=== PATIENT | female | born 1935 | race Caucasian/White ===

== ENCOUNTER → 2024-02-12 19:04 | Outpatient (ROUT) | payer SELFPAY ==
[2024-02-12 19:13] LABS: Appearance Urine UA CLEAR; Bilirubin Urine UA NEGATIVE (NEGATIVE); Color Urine UA YELLOW; Glucose Urine UA NEGATIVE (Negative); Ketones Urine UA NEGATIVE (NEGATIVE); Leukocyte Esterase Urine UA NEGATIVE (NEGATIVE); Nitrite Urine UA NEGATIVE (Negative); Occult Blood Urine UA NEGATIVE (Negative); Protein Urine UA NEGATIVE (Negative); Specific Gravity Urine UA <=1.005 (1.000-1.035); Urobilinogen Urine UA 0.2 E.U./dL (0.2)
[2024-02-12 19:35] LABS: Bacteria Urine None Seen; RBC Urine None Seen (0-5/HPF); Urine Volume 10mL (spun); WBC Urine None Seen (0-5/HPF)
[2024-02-12 19:36] LABS: Culture Indicated Urine Cult Not Indicated; Squamous Epithelial Cell Urine None Seen (0-5/HPF)
== END ==
PROVIDERS: Visit Provider Nurse Practitioner Family
DX: N39.0 Urinary tract infection, site not specified (principal)
CPT/HCPCS: 81001

== ENCOUNTER 2024-09-06 05:54 | Emergency (ER) | payer OTHER, SELFPAY ==
[2024-09-06 06:01] VITALS: BP 133/76; PULSE 93; RESP 20; TEMP 36.4; O2SAT 100
--- NOTE | 2024-09-06 06:05 | DI.RAD.S_ITS ---
PROCEDURE: XR WRIST RT 2V INDICATIONS: pain s/p fall TECHNIQUE: 2 views of the wrist were acquired. COMPARISON: None. FINDINGS: Bones: No fractures or dislocations. Moderate wrist joint osteoarthritic changes are seen. No suspicious bony lesions. Soft tissues: No suspicious soft tissue calcifications. IMPRESSION: No acute wrist fracture or dislocation. Right wrist joint osteoarthritis. Dictated by: Magdi Remy M.D. on 09/06/2024 at 8:05 Approved by: Magdi Remy M.D. on 09/06/2024 at 8:06
--- NOTE | 2024-09-06 06:05 | DI.RAD.S_ITS ---
PROCEDURE: XR ELBOW RT 2V INDICATIONS: fall TECHNIQUE: 2 views of the elbow were acquired. COMPARISON: None. FINDINGS: Bones: No fractures or dislocations. No suspicious bony lesions. Soft tissues: No elbow joint effusion. No suspicious soft tissue calcifications. IMPRESSION: No acute elbow fracture or dislocation. No significant joint effusion. No discrepancies from preliminary reading. Dictated by: Magdi Remy M.D. on 09/06/2024 at 8:06 Approved by: Magdi Remy M.D. on 09/06/2024 at 8:07
--- NOTE | 2024-09-06 06:09 | ED_ITS ---
HPI - Fall General Chief Complaint: Fall Stated Complaint: GLF Time Seen by Provider: 09/06/24 06:05 Source: EMS Mode of arrival: EMS History of Present Illness HPI Narrative: 89-year-old female with past medical history of dementia comes into the ED from [facility], for unwitnessed fall. Patient was found on the floor at around 9:00 p.m. yesterday, states that they noted abrasions to her right forearm had it covered but persistently complained of right wrist and arm pain and was requesting x-ray. At time of evaluation patient intermittently alert to place and self but pleasantly confused, she is stating that she remembers falling and is stating that her arm hurts and wants x-rays. However additional ROS HPI limited given patient's history of dementia. He is moving all 4 extremities spontaneously and is not having any pain on palpation. Patient is DNR DNI limited intervention according to POLST form that accompanies the patient. Review of Systems Review of Systems ROS Unobtainable: Unobtainable due to mental condition and Other (Dementia) Exam Narrative Exam Narrative: General: Elderly, frail, Cooperative,not in acute distress HEENT: Normocephalic, atraumatic, PERRLA, normal sclera, eyelids normal, there are no abrasions lacerations ecchymosis or other signs of trauma noted to the face scalp or entirety of the head Neck: Active full range of motion, atraumaticm, there is no tenderness to palpation of the midline cervical neck no palpable step-off no gross deformity Chest: Normal to inspection, negative crepitus, no overlying erythema ecchymosis Respiratory: Normal respiratory effort, not in acute respiratory distress, clear to auscultation bilaterally negative cough, wheeze, tachypnea, rhonchi, rales Cardiology: Regular rate rhythm negative gallop, murmur, rubs GI/: Normal to inspection, soft, nonrigid, no tenderness to palpation, exam deferred MSK: Full range of active range of motion of all 4 extremities, no tenderness to palpation of any bony prominences abrasion with bandage noted to the right wrist and right upper arm Skin: No rashes lesions noted Neuro: Patient with baseline dementia, intermittently alert to self and place, she is following commands appropriately moving all 4 extremities spontaneously Psych: Cooperative, negative suicidal or homicidal ideations Initial Vital Signs Initial Vital Signs: Vital Signs Temperature 97.6 F 09/06/24 06:01 Pulse Rate 93 H 09/06/24 06:01 Respiratory Rate 20 09/06/24 06:01 Blood Pressure 133/76 09/06/24 06:01 Pulse Oximetry 100 09/06/24 06:01 Oxygen Delivery Method Room Air 09/06/24 06:01 Course Orders Ordered: ED Orders 09/06/24 06:05 XR elbow RT 2V Stat XR wrist RT 2V Stat Vital Signs Vital signs: Vital Signs - 8 hr 09/06/24 06:01 Temperature 97.6 F Pulse Rate 93 H Respiratory Rate 20 Blood Pressure 133/76 Pulse Oximetry 100 Oxygen Delivery Method Room Air MDM - Fall Differential Diagnosis Differential diagnosis: Likely fracture of wrist and other (Abrasion, closed head injury, cervical neck fracture) Imaging Data X-ray wrist: My Impression: No acute traumatic injury Radiologist's Impression: Preliminary read showing no acute traumatic injury X-ray elbow: My Impression: No acute traumatic injury MDM Narrative Medical decision making narrative: 89-year-old female history of dementia presents via EMS from [facility] for unwitnessed fall, medics state that the facility found the patient on the floor at around 9:00 p.m. yesterday, states that they were able to dress her abrasion, states that she was at her baseline but was complaining of pain to her right upper extremity and is demanding x-rays. On exam patient intermittently alert to self and place, she is moving all 4 extremities spo ntaneously. She is only complaining of wanting an x-ray to her right arm, she states that she remembers falling. On exam there is no tenderness to palpation of the midline cervical spine, there has no gross deformities noted on the scalp indicative of any traumatic injuries. Patient is DNR DNI comfort care only based off POLST form that patient presented with Patient had x-ray of the right upper extremity without any acute traumatic injury. Discharge Plan Departure Patient Disposition: Home Clinical Impression: Arm contusion, Abrasion of skin Activity Restrictions/Additional Instructions: Please follow up with your primary care doctor Please read the discharge instructions sheet carefully and bring all papers to all doctor follow-up visits, as it may contain information that your doctor may want to see. Disease processes change and evolve, if your symptoms worsen or if you develop any new symptoms that are concerning to you please return for evaluation. Your evaluation today does not show any evidence of any life- threatening/serious illnesses requiring admission to the hospital or surgery. Please follow-up with your doctor for re-evaluation in approximately 1 day. Seek immediate medical attention for any worrisome symptoms. *If you do not have a primary care provider please contact the [facility] Resource line at [phone]. They will ask some questions about your medical history and help get you set up with a doctor in the community. Stand Alone Forms: Patient Portal/API/Survey
== END 2024-09-06 08:56 | disposition home or self-care (01) ==
PROVIDERS: Emergency Provider Student in an Organized Health Care Education/Training Program; PCP Nurse Practitioner Family
DX: S50.811A Abrasion of right forearm, initial encounter (principal); M25.531 Pain in right wrist; W19.XXXA Unspecified fall, initial encounter
CPT/HCPCS: 73070; 73100; 99281; 99283

== ENCOUNTER 2024-10-23 11:48 | Emergency (ER) | payer OTHER, SELFPAY ==
[2024-10-23] VITALS (10 sets, daily range): BP systolic 134–148; BP diastolic 66–78; PULSE 66–86; RESP 16–19; TEMP 36.8–37.4; O2SAT 96–100
[2024-10-23] MEDS: MORPHINE 4 MG/ML INJ IV (12:25)
[2024-10-23] MEDS: ONDANSETRON 4 MG/2 ML INJ IV (12:26)
--- NOTE | 2024-10-23 13:00 | PC.NURSE ---
Assisted pt up to BSC. Pt able to transfer with one assist to commode. Voiding. Assisted back to bed. Appears in NAD.
--- NOTE | 2024-10-23 13:00 | ED.FALL ---
HPI - Fall General Chief Complaint: Fall Stated Complaint: GLF Time Seen by Provider: 10/23/24 12:35 Source: patient, EMS, RN notes reviewed and old records reviewed Mode of arrival: EMS History of Present Illness HPI Narrative: 89 Year old female with a past history of dementia from [facility] with unwitnessed fall yesterday. Patient arrives with paperwork/POLST form that notes she was DNR/DNI comfort measures Since then patient has been unwilling to walk seems to has been in pain although she denies pain currently. Patient is alert to self and location remembers a very long wait time at her last visit to the emergency department. Patient was able to let me know she had a fall. She states she did not hit her head. She complains of pain in her lower back at the top of her legs. She denies any other pain elsewhere. She denies any difficulty with breathing or chest pain. No nausea or vomiting. Denies any numbness tingling or weakness. She does not think she was any other injuries other than skin tears. Patient is not on any anticoagulant. She was alert she can tell me she lives at [facility] and that she was at the hospital. Related Data Previous Rx's Medication Instructions Recorded hydrocodone 5 mg-acetaminophen 325 1 tab PO Q6H PRN pain #7 tabs 10/23/24 mg tablet Allergies Allergy/AdvReac Type Severity Reaction Status Date / Time milk Allergy Verified 10/23/24 12:20 shellfish derived Allergy Verified 10/23/24 12:20 wheat Allergy Verified 10/23/24 12:20 Review of Systems Review of Systems ROS Unobtainable: All systems reviewed & are unremarkable except as noted in HPI and below Patient History Social History Smoking Status: Never smoker Smoking Status: Never smoker Exam Narrative Exam Narrative: GEN: Patient appears in mild distress. HEAD: No evidence of trauma, no raccoon/Wong sign. NECK: Nontender, painless range of motion, trachea midline EYES: PERRLA, EOMI ENT: External inspection normal, trachea is midline, TM's are normal no hemotypanum, Nares are clear, no septal hematoma, no dental or oral injury, airway is normal and with normal occlusion, No bony tenderness RESP: Chest is nontender and has symmetric movement, no ecchymosis, breath sounds are normal no crackles, wheezes or rales CVS: Heart sounds are normal, no murmur noted, No JVD. ABG/GI: Nontender, soft, normal bowel sounds, no distention, no organomegaly, pelvic rock is negative NEURO: Oriented AOx3, neuro is grossly intact, sensation and motor is normal all 4 extremities moving, cranial nerves II through XII are intact, GCS is 14 (appears to be at baseline with dementia) PSYCH: Normal mood and affect SKIN: Patient has skin tear on the left scapular region proximally 2 cm, warm and dry, no crepitus and without decubitus BACK: No CVA tenderness, no vertebral tenderness, no step-off's, no crepitus EXT: Atraumatic, hips are nontender, patient is able to lift and move her legs without a lot of pain. No pedal edema, normal color and temperature, normal range of motion of extremities with normal tendon exam, 2+ pulses in all four extremities Initial Vital Signs Initial Vital Signs: Vital Signs Pulse Oximetry 100 10/23/24 11:57 Course Orders Ordered: Discontinued Medications Diphtheria/Tetanus/Acell Pertussis (Tet,Diph,Pertuss(Acell),Vac/Pf 0.5 Ml Syringe) 0.5 ml IM .ONCE ONE Stop: 10/23/24 13:10 Last Admin: 10/23/24 14:19 Dose: 0.5 ml Documented By: SB Morphine Sulfate (Morphine 4 Mg/Ml Inj) 4 mg IV NOW ONE Stop: 10/23/24 12:20 Last Admin: 10/23/24 12:25 Dose: 4 mg Documented By: ES Ondansetron HCl (Ondansetron 4 Mg/2 Ml Inj) 4 mg IV NOW ONE Stop: 10/23/24 12:20 Last Admin: 10/23/24 12:26 Dose: 4 mg Documented By: ES Vital Signs Vital signs: Vital Signs - 8 hr 10/23/24 11:57 10/23/24 11:59 10/23/24 11:59 Temperature Pulse Rate 81 Respiratory Rate Blood Pressure 148/68 H Pulse Oximetry 100 100 Oxygen Delivery Method 10/23/24 12:00 10/23/24 12:02 10/23/24 12:04 Temperature 99.3 F Pulse Rate 76 81 Respiratory Rate 18 Blood Pressure 144/66 H 148/68 H Pulse Oximetry 100 99 Oxygen Delivery Method Room Air 10/23/24 12:39 10/23/24 13:10 10/23/24 13:40 Temperature Pulse Rate 86 66 79 Respiratory Rate 16 19 Blood Pressure 134/78 138/78 Pulse Oximetry 99 99 99 Oxygen Delivery Method Room Air Room Air 10/23/24 15:03 10/23/24 15:10 Temperature 98.2 F 99.1 F Pulse Rate 82 66 Respiratory Rate 18 19 Blood Pressure 142/78 H Pulse Oximetry 96 98 Oxygen Delivery Method Room Air MDM - Fall MDM Narrative Medical decision making narrative: 89-year-old female history of dementia presents after having an unwitnessed fall yesterday at [facility] with a history of dementia. Patient states she remembers falling although told triage that she did not. She complains of pain in her lower lumbar region of the top of her legs. Per report patient has not really been ambulating much today. Here in the department she was the bedside commode with minimal assistance and then later got out of the bed herself without any assistance and started walking. L-spine xray mild multilevel degenerative disc disease on lower lumbar facet arthrosis. Pelvic x-ray no displaced fracture, no suspicious bony lesions surgical fusion of the right femur. Patient had morphine and ondansetron Discharge Plan Departure Patient Disposition: Home Clinical Impression: Low back pain, Fall Instructions: Low Back Pain Activity Restrictions/Additional Instructions: Your imaging today did not show any new changes or fractures, are some degenerative arthritic changes present. You can take acetaminophen up to a 1000 mg every 6 hours as needed for pain. If inadequate for pain take Yale 1-2 tablets every 6 hours as needed instead. This medication can make you sleepy do not drive, perform hazardous activities or make any major decisions while taking it. This medication will make you constipated please take a stool softener once to twice daily until stools are soft and regular. Prescription sent to [facility] in [place]. Please return for new concerns. Prescriptions: New hydrocodone-acetaminophen 5-325 mg tablet 1 tab PO Q6H PRN (Reason: pain) Qty: 7 0RF Referrals: Jane Palacios ARNP [Primary Care Provider] - Stand Alone Forms: Patient Portal/API/Survey
--- NOTE | 2024-10-23 13:08 | DI.RAD.S_ITS ---
PROCEDURE: XR PELVIS 1-2V INDICATIONS: low back pain, fall, dementia TECHNIQUE: 1 view(s) of the pelvis acquired. COMPARISON: None. FINDINGS: Bones: No fractures or dislocations. No suspicious bony lesions. Surgical fusion of the right femur. Soft tissues: Visualized bowel gas pattern is normal. No suspicious soft tissue calcifications. IMPRESSION: No displaced fracture. If there remains a high clinical concern or the patient cannot bear weight, consider cross-sectional imaging to exclude an occult fracture. Dictated by: Alexsander Glez M.D. on 10/23/2024 at 14:10 Approved by: Alexsander Glez M.D. on 10/23/2024 at 14:11
--- NOTE | 2024-10-23 13:08 | DI.RAD.S_ITS ---
PROCEDURE: XR LUMBAR SPINE 2-3V INDICATIONS: low back pain, fall, dementia TECHNIQUE: 3 views of the lumbar spine were acquired. COMPARISON: None. FINDINGS: Bones: 5 [id number] vertebrae are present. There is normal bony alignment. No vertebral body compression fractures. No suspicious bony lesions. Mild, multilevel degenerative disc disease and lower lumbar facet arthrosis. Soft tissues: Overlying bowel gas pattern is normal. No suspicious soft tissue calcifications. IMPRESSION: Mild, multilevel degenerative disc disease and lower lumbar facet arthrosis. Dictated by: Alexsander Glez M.D. on 10/23/2024 at 14:10 Approved by: Alexsander Glez M.D. on 10/23/2024 at 14:10
--- NOTE | 2024-10-23 13:30 | PC.NURSE ---
Pt assisted up to BSC. Voiding.
[2024-10-23] MEDS: TET,DIPH,PERTUSS(ACELL),VAC/PF 0.5 ML SYRINGE IM (14:19)
--- NOTE | 2024-10-23 15:53 | PC.NURSE ---
Pt yelling and crawling out of bed. Pt saying she needs to go to the commode. Assisted to commode and back to bed.
== END 2024-10-23 15:10 | disposition home or self-care (01) ==
PROVIDERS: Emergency Provider Emergency Medicine; PCP Nurse Practitioner Family
DX: M54.9 Dorsalgia, unspecified (principal); M79.652 Pain in left thigh; M79.651 Pain in right thigh; F03.90 Unspecified dementia, unspecified severity, without behavioral disturbance, psychotic disturbance, mood disturbance, and anxiety; W19.XXXA Unspecified fall, initial encounter; Z23 Encounter for immunization
CPT/HCPCS: 72100; 72170; 90471; 96374; 96375; 99284; 90715; J2270; J2405

== ENCOUNTER 2024-11-06 14:28 | Emergency (ER) | payer OTHER, SELFPAY ==
[2024-11-06] VITALS (16 sets, daily range): BP systolic 140–173; BP diastolic 62–99; PULSE 62–87; RESP 13–23; TEMP 36.9; O2SAT 90–99
--- NOTE | 2024-11-06 15:03 | DI.RAD.S_ITS ---
PROCEDURE: XR KNEE RT 3V INDICATIONS: pain TECHNIQUE: 3 views of the knee were acquired. COMPARISON: None. FINDINGS: Bones: No fractures or dislocations. 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 No patellar subluxation. No suspicious bony lesions. Soft tissues: Small suprapatellar joint effusion. Chondrocalcinosis in medial and lateral femoral tibial compartments are seen. IMPRESSION: No acute right knee fracture or dislocation. Small suprapatellar joint effusion. [id number] tricompartmental osteoarthritis and chondrocalcinosis. Dictated by: Magdi Remy M.D. on 11/06/2024 at 15:59 Approved by: Magdi Remy M.D. on 11/06/2024 at 16:00
--- NOTE | 2024-11-06 15:03 | DI.RAD.S_ITS ---
PROCEDURE: XR KNEE LT 3V INDICATIONS: pain TECHNIQUE: 3 views of the knee were acquired. COMPARISON: None. FINDINGS: Bones: No fractures or dislocations. No patellar subluxation. Moderate tricompartmental osteoarthritis is seen. No suspicious bony lesions. Soft tissues: No joint effusion. Chondrocalcinosis in medial and lateral femoral tibial compartments are seen. Vascular calcifications in posterior aspect of left knee are also noted. IMPRESSION: No acute left knee fracture or dislocation. [id number] tricompartmental osteoarthritis and chondrocalcinosis as above. No significant joint effusion. Dictated by: Magdi Remy M.D. on 11/06/2024 at 15:57 Approved by: Magdi Remy M.D. on 11/06/2024 at 15:58
[2024-11-06] MEDS: HYDROMORPHONE 0.5 MG INJ IV (15:07)
[2024-11-06 15:13] LABS: Add Manual Diff / Slide Review NO; Basophils Absolute Auto 0 /uL (0-100); Basophils Percent Auto 0.6 % (0-2); Eosinophils Absolute Auto 0 /uL (0-450); Eosinophils Percent Auto 0.8 % (2-4); Hematocrit 35.9 % (36-46); Hemoglobin 12.5 g/dL (12.0-16.0); Lymphocytes Absolute Auto 1000 /uL (1100-4500); Lymphocytes Percent Auto 18.4 % (25-40); Mean Corpuscular HGB Conc 34.8 % (30-36); Mean Corpuscular Hemoglobin 32.3 PG (26-34); Mean Corpuscular Volume 92.9 fL (80-100); Monocytes Absolute Auto 800 /uL (0-900); Neutrophils Absolute Auto 3600 /uL (1500-7000); Neutrophils Percent Auto 65.2 % (50-75); Platelet Count 348 X10^3/uL (150-400); Red Blood Cell Count 3.87 X10^6/uL (4.0-5.2); Red Cell Distribution Width 13.1 % (11.6-14.8); White Blood Cell Count 5.5 X10^3/uL (4.5-11.0)
--- NOTE | 2024-11-06 15:21 | PC.NURSE ---
Pt frequently moaning out, yelling in pain, turning to reposition in bed. Pt states They dont know what they are doing at [facility]! They cant find anything and My leg warmers! my leg warmers!. I removed pt's leg warms and obtained a urine sample on the bedpan. She becomes agitatated with questions but denies other symptoms. Her complaint is pain behind my legs grabbing at her thighs. Call light placed in pt's reach and bed rails up.
[2024-11-06 15:25] LABS: Alanine Aminotransferase 30 IU/L (<35); Albumin 4.2 g/dL (3.5-5.0); Albumin Globulin Ratio 1.6 (1.0-2.8); Alkaline Phosphatase 250 U/L (38-126); Aspartate Aminotransferase 38 IU/L (14-36); BUN Creatinine Ratio 36.1 (6-22); Bilirubin Total 0.4 mg/dL (0.2-1.3); Blood Urea Nitrogen 22 mg/dL (7-17); Calcium 9.3 mg/dL (8.4-10.2); Carbon Dioxide 27 mmol/L (22-32); Chloride 93 mmol/L (98-107); Estimated Glomerular Filt Rate > 60 mL/min (>60); Globulin 2.6 g/dL (1.7-4.1); Glucose 120 mg/dL (70-99); HEMOLYSIS 29 (0-50); Potassium 4.4 mmol/L (3.4-5.1); Sodium 130 mmol/L (137-145); Total Protein 6.8 g/dL (6.3-8.2)
--- NOTE | 2024-11-06 16:27 | PC.NURSE ---
pt laying in bed resting, no longer moaning in pain. Pt responsive to voice. I asked pt if she is still in pain and pt states i dont know. Pt breathing even an non labored.
--- NOTE | 2024-11-06 17:33 | DI.RAD.S_ITS ---
PROCEDURE: XR HIP W PEL IF DONE RT 2V INDICATIONS: pain TECHNIQUE: AP pelvis with lateral view(s) of the right hip(s). COMPARISON: None. FINDINGS: Bones: Post ORIF changes are noted in proximal right femur with healed or nearly healed right proximal intertrochanteric fracture. No obvious hardware loosening or failure. No acute pelvic or hip fracture. Pelvic ring appears intact. 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 No evidence of avascular necrosis of femoral head. No suspicious bony lesions. Degenerative disc disease in visualized lower lumbar spine is seen. Soft tissues: The visualized bowel gas pattern is normal. No suspicious soft tissue calcifications. IMPRESSION: No gross acute right hip fracture or dislocation. Post ORIF changes in right proximal femur with healed or nearly healed intertrochanteric fracture. No evidence of avascular necrosis of femoral head. Dictated by: Magdi Remy M.D. on 11/06/2024 at 18:17 Approved by: Magdi Remy M.D. on 11/06/2024 at 18:18
[2024-11-06 22:04] LABS: Lactate (Lactic Acid) 1.3 mmol/L (0.7-2.1)
--- NOTE | 2024-11-06 22:19 | ED_ITS ---
HPI - Extremity Problem General Chief complaint: Extremity Problem,Nontraumatic Stated complaint: Generalized pain Time Seen by Provider: 11/06/24 15:03 Source: EMS Mode of arrival: EMS History of Present Illness HPI Narrative: 89-year-old female resident at [facility], frequent falls, unclear if she has had any witnessed recent fall, but seems to be complaining of low back and bilateral hip pain. No pain to her head or neck or chest or upper back or abdomen and pelvis. No pain in her arms forearms hands wrists. No pain in her forelegs ankles feet toes. Related Data Previous Rx's Medication Instructions Recorded hydrocodone 5 mg-acetaminophen 325 1 tab PO Q6H PRN pain #7 tabs 10/23/24 mg tablet Allergies Allergy/AdvReac Type Severity Reaction Status Date / Time milk Allergy Verified 10/23/24 12:20 shellfish derived Allergy Verified 10/23/24 12:20 wheat Allergy Verified 10/23/24 12:20 Patient History Social History Smoking Status: Never smoker Smoking Status: Never smoker Exam Narrative Exam Narrative: GENERAL: Well-developed patient, in mild distress. Generally irritable with any examination. HEAD: Atraumatic. Normocephalic. EYES: Pupils equal round and reactive. Extraocular motions intact. No scleral icterus. No injection or drainage. ENT: Nose without bleeding, purulent drainage. Throat without erythema, tonsillar hypertrophy or exudate. Airway patent. NECK: Trachea midline. Non tender CARDIOVASCULAR: Regular rate and rhythm without murmurs, gallops, or rubs. RESPIRATORY: Clear to auscultation. Breath sounds equal bilaterally. No wheezes, rales, or rhonchi. GASTROINTESTINAL: Abdomen soft, non-tender, nondistended. EXTREMITIES: No edema or joint tenderness. Well-healed scars hips. No gross deformities. No limb length discrepancy. Equivocal tenderness to hips, seems generally agitated with any examination. BACK: Nontender without deformity or crepitance. No flank tenderness. NEURO: AOx3. Motor functions grossly nonfocal SKIN: No rash or erythema of visible areas Initial Vital Signs Initial Vital Signs: Vital Signs Pulse Rate 78 11/06/24 14:41 Pulse Oximetry 90 L 11/06/24 14:41 Oxygen Delivery Method Room Air 11/06/24 14:41 Course Orders Ordered: Discontinued Medications Hydromorphone HCl (Hydromorphone 0.5 Mg Inj) 0.5 mg IV NOW ONE Stop: 11/06/24 15:04 Last Admin: 11/06/24 15:07 Dose: 0.5 mg Documented By: MUMTAZ Vital Signs Vital signs: Vital Signs - 8 hr 11/06/24 17:30 11/06/24 18:00 11/06/24 18:30 Pulse Rate 62 81 73 Respiratory Rate 15 23 19 Blood Pressure Pulse Oximetry 96 97 97 Oxygen Delivery Method Room Air 11/06/24 19:00 11/06/24 19:30 11/06/24 20:00 Pulse Rate 68 67 64 Respiratory Rate 14 13 16 Blood Pressure Pulse Oximetry 98 97 97 Oxygen Delivery Method Room Air 11/06/24 20:30 11/06/24 21:01 11/06/24 21:50 Pulse Rate 65 87 68 Respiratory Rate 17 17 Blood Pressure Pulse Oximetry 96 98 Oxygen Delivery Method 11/06/24 21:50 Pulse Rate Respiratory Rate Blood Pressure 140/62 Pulse Oximetry Oxygen Delivery Method MDM - Extremity (Nontraumatic) Lab Data 11/06/24 15:00 11/06/24 15:00 Labs: Lab Results 11/06/24 11/06/24 11/06/24 Range/Units 15:00 21:47 23:25 WBC 5.5 (4.5-11.0) X10^3/uL RBC 3.87 L (4.0-5.2) X10^6/uL Hgb 12.5 (12.0-16.0) g/dL Hct 35.9 L (36-46) % MCV 92.9 (80-100) fL MCH 32.3 (26-34) PG MCHC 34.8 (30-36) % RDW 13.1 (11.6-14.8) % Plt Count 348 (150-400) X10^3/uL Neut % (Auto) 65.2 (50-75) % Lymph % (Auto) 18.4 L (25-40) % Greenlee % (Auto) 15.0 H (3-14) % Eos % (Auto) 0.8 L (2-4) % Baso % (Auto) 0.6 (0-2) % Neut # (Auto) 3600 (2238-2106) /uL Lymph # (Auto) 1000 L (8829-1284) /uL Greenlee # (Auto) 800 (0-900) /uL Eos # (Auto) 0 (0-450) /uL Baso # (Auto) 0 (0-100) /uL Sodium 130 L (137-145) mmol/L Potassium 4.4 (3.4-5.1) mmol/L Chloride 93 L (98-107) mmol/L Carbon Dioxide 27 (22-32) mmol/L BUN 22 H (7-17) mg/dL Creatinine 0.61 (0.52-1.04) mg/dL Estimated GFR > 60 (>60) mL/min BUN/Creatinine Ratio 36.1 H (6-22) Glucose 120 H (70-99) mg/dL Lactate 1.3 (0.7-2.1) mmol/L Calcium 9.3 (8.4-10.2) mg/dL Total Bilirubin 0.4 (0.2-1.3) mg/dL AST 38 H (14-36) IU/L ALT 30 (<35) IU/L Alkaline Phosphatase 250 H (38-126) U/L Total Protein 6.8 (6.3-8.2) g/dL Albumin 4.2 (3.5-5.0) g/dL Globulin 2.6 (1.7-4.1) g/dL Albumin/Globulin Ratio 1.6 (1.0-2.8) Urine Color Yellow Urine Appearance Cloudy Urine pH 7.5 (4.5-8.0) Ur Specific Winters 1.015 (1.000-1.035) Urine Protein Negative (Negative) Urine Glucose (UA) Negative (Negative) g/dL Urine Ketones Negative (NEGATIVE) Urine Occult Blood Negative (Negative) Urine Nitrate Negative (Negative) Urine Bilirubin Negative (NEGATIVE) Urine Urobilinogen 0.2 (0.2) E.U./dL Ur Leukocyte Esterase Negative (NEGATIVE) Urine RBC None seen (0-5/HPF) Urine WBC None seen (0-5/HPF) Ur Squamous Epith Cells 0-1 /hpf (0-5/HPF) Amorphous Sediment 3+ Urine Bacteria Occasional (0-1) (None) Ur Culture Indicated? Cult not indicated Vol Urine Centrifuged 10ml (spun) Urine Dip Bedside Urine Glucose Negative Bedside Urine Bilirubin - Negative Bedside Urine Ketone - Negative Urine Specific Winters 1.005 Bedside Urine Occult Blood - Negative Bedside Urine pH 8.0 Bedside Urine Protein - Negative Bedside Urine Urobilinogen - Negative Bedside Urine Nitrite - Negative Bedside Urine Leukocytes - Negative Esterase Imaging Data Extremity x-ray #1: Radiologist's Impression: [address] [address] XRay Report Signed Patient: Jenna Turk MR#: [id number] : 1935 Acct:[id number] Age/Sex: 89 / F Date of Service: 11/06/24 Loc: ED Accession Number: [id number] Procedure: XR hip w pel if done RT 2V Ordering Provider: Farnaz Gabriel D.O. PROCEDURE: XR HIP W PEL IF DONE RT 2V INDICATIONS: pain TECHNIQUE: AP pelvis with lateral view(s) of the right hip(s). COMPARISON: None. FINDINGS: Bones: Post ORIF changes are noted in proximal right femur with healed or nearly healed right proximal intertrochanteric fracture. No obvious hardware loosening or failure. No acute pelvic or hip fracture. Pelvic ring appears intact. 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 No evidence of avascular necrosis of femoral head. No suspicious bony lesions. Degenerative disc disease in visualized lower lumbar spine is seen. Soft tissues: The visualized bowel gas pattern is normal. No suspicious soft tissue calcifications. IMPRESSION: No gross acute right hip fracture or dislocation. Post ORIF changes in right proximal femur with healed or nearly healed intertrochanteric fracture. No evidence of avascular necrosis of femoral head. Dictated by: Magdi Remy M.D. on 11/06/2024 at 18:17 Approved by: Magdi Remy M.D. on 11/06/2024 at 18:18 Extremity x-ray #2: Radiologist's Impression: [address] [address] XRay Report Signed Patient: Jenna Turk MR#: [id number] : 1935 Acct:[id number] Age/Sex: 89 / F Date of Service: 11/06/24 Loc: ED Accession Number: [id number] Procedure: XR knee RT 3V Ordering Provider: Botnick,Farnaz D.O. PROCEDURE: XR KNEE RT 3V INDICATIONS: pain TECHNIQUE: 3 views of the knee were acquired. COMPARISON: None. FINDINGS: Bones: No fractures or dislocations. 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 No patellar subluxation. No suspicious bony lesions. Soft tissues: Small suprapatellar joint effusion. Chondrocalcinosis in medial and lateral femoral tibial compartments are seen. IMPRESSION: No acute right knee fracture or dislocation. Small suprapatellar joint effusion. [id number] tricompartmental osteoarthritis and chondrocalcinosis. Dictated by: Magdi Remy M.D. on 11/06/2024 at 15:59 Approved by: Magdi Remy M.D. on 11/06/2024 at 16:00 Extremity x-ray #3: Radiologist's Impression: [place] [address] XRay Report Signed Patient: Jenna Turk MR#: [id number] : 1935 Acct:[id number] Age/Sex: 89 / F Date of Service: 11/06/24 Loc: ED Accession Number: [id number] Procedure: XR knee LT 3V Ordering Provider: Farnaz Gabriel D.O. PROCEDURE: XR KNEE LT 3V INDICATIONS: pain TECHNIQUE: 3 views of the knee were acquired. COMPARISON: None. FINDINGS: Bones: No fractures or dislocations. No patellar subluxation. Moderate tricompartmental osteoarthritis is seen. No suspicious bony lesions. Soft tissues: No joint effusion. Chondrocalcinosis in medial and lateral femoral tibial compartments are seen. Vascular calcifications in posterior aspect of left knee are also noted. IMPRESSION: No acute left knee fracture or dislocation. [id number] tricompartmental osteoarthritis and chondrocalcinosis as above. No significant joint effusion. Dictated by: Magdi Remy M.D. on 11/06/2024 at 15:57 Approved by: Magdi Remy M.D. on 11/06/2024 at 15:58 CT scan - abdomen/pelvis: Radiologist's Impression: [place] [address] CT Scan Report Signed Patient: Jenna Turk MR#: [id number] : 1935 Acct:[id number] Age/Sex: 89 / F Date of Service: 11/06/24 Loc: ED Accession Number: [id number] Procedure: CT abdomen pelvis wo con Ordering Provider: Chano Medina MD PROCEDURE: CT ABDOMEN PELVIS WO CON INDICATIONS: pain TECHNIQUE: Axial sections were acquired from the lung bases to the pubic symphysis. Coronal and sagittal reformats were performed. For radiation dose reduction, the following was used: automated exposure control, adjustment of mA and/or kV according to patient size. COMPARISON: [facility], CR, XR LUMBAR SPINE 2 OR 3 VIEWS, 10/02/2021, 16:37. [facility], CR, XR LUMBAR SPINE 2-3V, 10/23/2024, 13:26. [facility], CR, XR PELVIS 1-2V, 10/23/2024, 13:26. FINDINGS: Image quality: Diagnostic. Lower Chest: No significant findings. Breast implants. URINARY: Right Kidney: No hydronephrosis. Punctate nonobstructing kidney stones. Right Ureter: No hydroureter. Left Kidney: No hydronephrosis. Punctate nonobstructing kidney stones. Left Ureter: No hydroureter. Bladder: Mostly decompressed. No stones. ABDOMEN: Liver: No contour-deforming solid mass. Gallbladder: No radiopaque gallstones or wall thickening. Biliary ducts: No biliary dilation. Pancreas: No peripancreatic fluid collection. Small cyst near the body of the pancreas measuring 0.6 cm, (2/38). Spleen: Size is within normal limits. Adrenal Glands: No adrenal nodules. Stomach and Bowel: Prominent stool throughout the colon. Normal appendix. No small bowel obstruction. Stomach is not distended. Peritoneum: No abnormal intraperitoneal fluid. No free air. Ventral Wall: No hernia. Abdominal Nodes: No enlarged retroperitoneal or mesenteric lymph nodes. Vessels: Aorta and inferior vena cava are normal in size. PELVIS: Pelvic Organs: Uterus is absent. Pelvic Nodes: Unremarkable. Miscellaneous: No inguinal hernias are seen. Bones: No suspicious osseous lesion. Right hip screw fixation. Moderate bilateral hip DJD. Prior sacral fracture which appears similar dating back to 2021. Prior right 11th rib fracture. IMPRESSION: 1. No acute abnormality identified. No free fluid. 2. No hydronephrosis. Small nonobstructing kidney stones. 3. Increased stool in the colon suggesting constipation. 4. Remote sacral fracture. Dictated by: Aplesh Tafoya M.D. on 11/07/2024 at 0:46 Approved by: Alpesh Tafoya M.D. on 11/07/2024 at 0:54 MDM Narrative Medical decision making narrative: yo femal resident of [facility] with frequent falls, complains of low back pain and hips pain. XRays knees and hip ordered from triage, though paitent denies knee pain when asked by me, seems to have more low back pain than anyplace else. XRays bilateral knees and hip negative, see radiology reports CT Abd Pelvis noncontrast, showed old appearing sacral fracture, no acute injuries verónica or otherwise. See radiology report. DC back to [facility], via EMS for BLS transport Discharge Plan Departure Patient Disposition: Home Clinical Impression: Low back pain Activity Restrictions/Additional Instructions: No witnessed new fall, complained of pain. Screening x-rays of both knees negative. Hip x-ray negative. Seemed to have discomfort in low back. CT abdomen and pelvis noncontrast scan was done, no acute fractures. Old appearing sacral fractures noted on CT imaging. Constipation colonic changes incidentally noted. Could consider MiraLax or magnesium citrate at her facility if needed. Return by EMS back to her [facility] unit. Recheck by provider there. Return to this/nearest emergency department if there is any change worsening symptoms or any concerns prior. Prescriptions: No Action hydrocodone-acetaminophen 5-325 mg tablet 1 tab PO Q6H PRN (Reason: pain) Qty: 7 0RF Referrals: Jane Palacios ARNP [Primary Care Provider] - Stand Alone Forms: Patient Portal/API/Survey
--- NOTE | 2024-11-06 22:41 | DI.CT.S_ITS ---
PROCEDURE: CT ABDOMEN PELVIS WO CON INDICATIONS: pain TECHNIQUE: Axial sections were acquired from the lung bases to the pubic symphysis. Coronal and sagittal reformats were performed. For radiation dose reduction, the following was used: automated exposure control, adjustment of mA and/or kV according to patient size. COMPARISON: [facility], CR, XR LUMBAR SPINE 2 OR 3 VIEWS, 10/02/2021, 16:37. [facility], CR, XR LUMBAR SPINE 2-3V, 10/23/2024, 13:26. [facility], CR, XR PELVIS 1-2V, 10/23/2024, 13:26. FINDINGS: Image quality: Diagnostic. Lower Chest: No significant findings. Breast implants. URINARY: Right Kidney: No hydronephrosis. Punctate nonobstructing kidney stones. Right Ureter: No hydroureter. Left Kidney: No hydronephrosis. Punctate nonobstructing kidney stones. Left Ureter: No hydroureter. Bladder: Mostly decompressed. No stones. ABDOMEN: Liver: No contour-deforming solid mass. Gallbladder: No radiopaque gallstones or wall thickening. Biliary ducts: No biliary dilation. Pancreas: No peripancreatic fluid collection. Small cyst near the body of the pancreas measuring 0.6 cm, (2/38). Spleen: Size is within normal limits. Adrenal Glands: No adrenal nodules. Stomach and Bowel: Prominent stool throughout the colon. Normal appendix. No small bowel obstruction. Stomach is not distended. Peritoneum: No abnormal intraperitoneal fluid. No free air. Ventral Wall: No hernia. Abdominal Nodes: No enlarged retroperitoneal or mesenteric lymph nodes. Vessels: Aorta and inferior vena cava are normal in size. PELVIS: Pelvic Organs: Uterus is absent. Pelvic Nodes: Unremarkable. Miscellaneous: No inguinal hernias are seen. Bones: No suspicious osseous lesion. Right hip screw fixation. Moderate bilateral hip DJD. Prior sacral fracture which appears similar dating back to 2021. Prior right 11th rib fracture. IMPRESSION: 1. No acute abnormality identified. No free fluid. 2. No hydronephrosis. Small nonobstructing kidney stones. 3. Increased stool in the colon suggesting constipation. 4. Remote sacral fracture. Dictated by: Alpesh Tafoya M.D. on 11/07/2024 at 0:46 Approved by: Alpesh Tafoya M.D. on 11/07/2024 at 0:54
[2024-11-06 23:44] LABS: Appearance Urine UA Cloudy; Bilirubin Urine UA NEGATIVE (NEGATIVE); Color Urine UA YELLOW; Glucose Urine UA NEGATIVE (Negative); Ketones Urine UA NEGATIVE (NEGATIVE); Leukocyte Esterase Urine UA NEGATIVE (NEGATIVE); Nitrite Urine UA NEGATIVE (Negative); Occult Blood Urine UA NEGATIVE (Negative); Protein Urine UA NEGATIVE (Negative); Specific Gravity Urine UA 1.015 (1.000-1.035); Urobilinogen Urine UA 0.2 E.U./dL (0.2); pH Urine UA 7.5 (4.5-8.0)
[2024-11-06 23:45] LABS: Amorphous Sediment Urine 3+; Bacteria Urine Occasional (0-1); Culture Indicated Urine Cult Not Indicated; RBC Urine None Seen (0-5/HPF); Squamous Epithelial Cell Urine 0-1 /HPF (0-5/HPF); Urine Volume 10mL (spun); WBC Urine None Seen (0-5/HPF)
[2024-11-07 02:01] VITALS: PULSE 69; O2SAT 98
[2024-11-07 02:02] VITALS: BP 140/78; PULSE 69; O2SAT 97
== END 2024-11-07 02:29 | disposition home or self-care (01) ==
PROVIDERS: Emergency Medicine; Emergency Provider Emergency Medicine; PCP Nurse Practitioner Family
DX: M54.50 Low back pain, unspecified (principal); M25.552 Pain in left hip; M25.551 Pain in right hip; M25.561 Pain in right knee
CPT/HCPCS: 73502; 73562; 74176; 80053; 81001; 81003; 83605; 85025; 96374; 99283; 99284; J1171

== ENCOUNTER 2024-12-08 18:20 | Observation (INO) | payer OTHER, SELFPAY ==
[2024-12-08] VITALS (12 sets, daily range): BP systolic 144–179; BP diastolic 53–104; PULSE 67–108; RESP 19–26; TEMP 36.3–36.6; O2SAT 91–99; BMI 22.3
--- NOTE | 2024-12-08 18:49 | PC.NURSE ---
Small amount of clots and coffee ground emesis noted on towel placed under pts face.
[2024-12-08 19:17] LABS: Add Manual Diff / Slide Review NO; Basophils Absolute Auto 0 /uL (0-100); Basophils Percent Auto 0.2 % (0-2); Eosinophils Absolute Auto 0 /uL (0-450); Hematocrit 37.4 % (36-46); Hemoglobin 13.1 g/dL (12.0-16.0); Lymphocytes Absolute Auto 500 /uL (1100-4500); Lymphocytes Percent Auto 4.2 % (25-40); Mean Corpuscular Hemoglobin 32.3 PG (26-34); Mean Corpuscular Volume 92.2 fL (80-100); Monocytes Absolute Auto 1200 /uL (0-900); Monocytes Percent Auto 9.6 % (3-14); Neutrophils Absolute Auto 10700 /uL (1500-7000); Platelet Count 314 X10^3/uL (150-400); Red Blood Cell Count 4.06 X10^6/uL (4.0-5.2); Red Cell Distribution Width 13.2 % (11.6-14.8); White Blood Cell Count 12.5 X10^3/uL (4.5-11.0)
[2024-12-08 19:19] LABS: INR 0.9 (0.9-1.3); Prothrombin Time 10.5 SECONDS (9.4-12.5)
[2024-12-08] MEDS: PANTOPRAZOLE 40 MG VIAL 80 MG IV (19:19)
[2024-12-08 19:21] LABS: PTT Partial Thromboplastin Tim 28 SECONDS (25.1-36.5)
--- NOTE | 2024-12-08 19:21 | ED.GIBLEED ---
HPI - GI Bleed General Chief complaint: GI Bleed Stated complaint: Weakness x4 Days Time Seen by Provider: 12/08/24 19:21 Source: EMS, RN notes reviewed and old records reviewed Mode of arrival: EMS Limitations: no limitations History of Present Illness HPI Narrative: 89-year-old female known history of dementia comes from a memory care unit presents with complaint of weakness for the past 4 days and vomiting what sounds like coffee grounds. Per EMS patient is usually ambulatory, alert had shotty and they state today she has not been getting out of bed and has not really been conversant. She was alert but does not answer questions. Patient is unable to give any other history. She was DNR/DNI/comfort measures on her paperwork. Related Data Previous Rx's Medication Instructions Recorded hydrocodone 5 mg-acetaminophen 325 1 tab PO Q6H PRN pain #7 tabs 10/23/24 mg tablet Allergies Allergy/AdvReac Type Severity Reaction Status Date / Time milk Allergy Verified 10/23/24 12:20 shellfish derived Allergy Verified 10/23/24 12:20 wheat Allergy Verified 10/23/24 12:20 Review of Systems Review of Systems ROS Unobtainable: All systems reviewed & are unremarkable except as noted in HPI and below Exam Narrative Exam Narrative: GENERAL: Alert elderly female in moderate distress. HEENT: Head normocephalic, atraumatic, EOMI, pupils reactive, face symmetric, moist mucous membranes NECK: Supple, full range of motion CARDIOVASCULAR: Regular rate and rhythm without murmurs, rubs or gallops. RESPIRATORY: Breath sounds equal bilaterally, no wheezes rales or rhonchi. ABDOMEN: Soft, abdomen does seem distended. Unclear if patient was in pain but indicates that my hands are ?very cold and pushes them away?. Normoactive bowel sounds all 4 quadrants. No guarding or rebound, rigidity, no mass : No CVA tenderness EXTREMITIES: Normal range of motion, no clubbing or edema. Neurovascularly intact NEUROLOGICAL: Cranial nerves II through XII grossly intact. Moving all extremities SKIN: Warm, dry, no petechiae, no rashes or lesions. Initial Vital Signs Initial Vital Signs: Vital Signs Pulse Rate 71 12/08/24 18:27 Pulse Oximetry 94 12/08/24 18:27 Course Orders Ordered: ED Orders 12/08/24 18:30 Complete Blood Count AUTO DIFF Stat Comprehensive Metabolic Panel Stat Lipase Stat PTT Partial Thromboplastin Octaviano Stat Prothrombin Time INR Stat 12/08/24 19:43 CT abdomen pelvis w con Stat Ondansetron HCl (Ondansetron 4 Mg/2 Ml Inj) 4 mg IV NOW PRN PRN Reason: Nausea And Vomiting Discontinued Medications Pantoprazole Sodium (Pantoprazole 40 Mg Vial) 80 mg IV NOW ONE Stop: 12/08/24 19:14 Last Admin: 12/08/24 19:19 Dose: 80 mg Documented By: Vital Signs Vital signs: Vital Signs - 8 hr 12/08/24 18:27 12/08/24 18:30 12/08/24 18:30 Temperature Pulse Rate 71 72 Respiratory Rate 21 Blood Pressure 171/79 H Pulse Oximetry 94 99 Oxygen Delivery Method 12/08/24 18:39 12/08/24 19:00 12/08/24 19:00 Temperature 97.4 F L Pulse Rate 67 68 Respiratory Rate 22 19 Blood Pressure 179/84 H 161/74 H Pulse Oximetry 98 96 Oxygen Delivery Method Room Air 12/08/24 19:30 12/08/24 19:31 12/08/24 19:31 Temperature Pulse Rate 96 H 108 H Respiratory Rate 26 H 24 Blood Pressure 169/104 H Pulse Oximetry 96 97 Oxygen Delivery Method Room Air 12/08/24 20:00 12/08/24 20:30 12/08/24 21:00 Temperature Pulse Rate 82 81 76 Respiratory Rate 23 19 23 Blood Pressure Pulse Oximetry 96 96 96 Oxygen Delivery Method 12/08/24 21:30 Temperature Pulse Rate 71 Respiratory Rate 19 Blood Pressure Pulse Oximetry 97 Oxygen Delivery Method MDM - GI Bleed Lab Data 12/08/24 18:30 12/08/24 18:30 Labs: Lab Results 12/08/24 Range/Units 18:30 WBC 12.5 H (4.5-11.0) X10^3/uL RBC 4.06 (4.0-5.2) X10^6/uL Hgb 13.1 (12.0-16.0) g/dL Hct 37.4 (36-46) % MCV 92.2 (80-100) fL MCH 32.3 (26-34) PG MCHC 35.0 (30-36) % RDW 13.2 (11.6-14.8) % Plt Count 314 (150-400) X10^3/uL Neut % (Auto) 86.0 H (50-75) % Lymph % (Auto) 4.2 L (25-40) % Bennett % (Auto) 9.6 (3-14) % Eos % (Auto) 0.0 L (2-4) % Baso % (Auto) 0.2 (0-2) % Neut # (Auto) 94980 H (5793-8399) /uL Lymph # (Auto) 500 L (1194-9895) /uL Bennett # (Auto) 1200 H (0-900) /uL Eos # (Auto) 0 (0-450) /uL Baso # (Auto) 0 (0-100) /uL PT 10.5 (9.4-12.5) SECONDS INR 0.9 (0.9-1.3) APTT 28 (25.1-36.5) SECONDS Sodium 129 L (137-145) mmol/L Potassium 4.6 (3.4-5.1) mmol/L Chloride 90 L (98-107) mmol/L Carbon Dioxide 31 (22-32) mmol/L BUN 44 H (7-17) mg/dL Creatinine 0.74 (0.52-1.04) mg/dL Estimated GFR > 60 (>60) mL/min BUN/Creatinine Ratio 59.5 H (6-22) Glucose 160 H (70-99) mg/dL Calcium 9.9 (8.4-10.2) mg/dL Total Bilirubin 0.7 (0.2-1.3) mg/dL AST 39 H (14-36) IU/L ALT 24 (<35) IU/L Alkaline Phosphatase 141 H (38-126) U/L Total Protein 7.0 (6.3-8.2) g/dL Albumin 4.2 (3.5-5.0) g/dL Globulin 2.8 (1.7-4.1) g/dL Albumin/Globulin Ratio 1.5 (1.0-2.8) Lipase 27 (23-300) U/L [facility] Narrative Medical decision making narrative: Labs show white count of 12.5 hemoglobin of 13.1 platelets of 314. Coags are negative, sodium is 129 chloride 90 BUN 44 glucose is 106 otherwise normal creatinine, AST is 39 ALT is 24 with a bilirubin of 0.7 alk-phos is 141. CT imaging shows trace left pleural effusion, large hiatal hernia, lower esophageal wall thickening bilateral breast implants. With marked distention of small bowel with diffuse fecalized contents is transition point right mid abdomen with the associated swelling and mesentery fecal debris within the ascending colon and transverse colon with relative decompression distal large bowel. Small volume ascites. Bilateral sacral insufficiency fractures. Called patient's family at number provided [phone] . Spoke with son at [phone], he would be agreeable to some fluids and antiemetics but would not want surgical interventions for a bowel obstruction. He states if she does not have any improvement with this he would want to continue with comfort measures. Spoke with tele hospitalist on Ceci @ [phone] accepts for inpatient. Discharge Plan Departure Patient Disposition: Admitted As Inpatient Clinical Impression: SBO (small bowel obstruction) Prescriptions: No Action hydrocodone-acetaminophen 5-325 mg tablet 1 tab PO Q6H PRN (Reason: pain) Qty: 7 0RF Referrals: Jane Palacios ARNP [Primary Care Provider] -
[2024-12-08 19:26] LABS: Alanine Aminotransferase 24 IU/L (<35); Albumin 4.2 g/dL (3.5-5.0); Albumin Globulin Ratio 1.5 (1.0-2.8); Alkaline Phosphatase 141 U/L (38-126); Aspartate Aminotransferase 39 IU/L (14-36); BUN Creatinine Ratio 59.5 (6-22); Bilirubin Total 0.7 mg/dL (0.2-1.3); Blood Urea Nitrogen 44 mg/dL (7-17); Calcium 9.9 mg/dL (8.4-10.2); Carbon Dioxide 31 mmol/L (22-32); Chloride 90 mmol/L (98-107); Estimated Glomerular Filt Rate > 60 mL/min (>60); Globulin 2.8 g/dL (1.7-4.1); Glucose 160 mg/dL (70-99); HEMOLYSIS < 15 (0-50); Potassium 4.6 mmol/L (3.4-5.1); Sodium 129 mmol/L (137-145)
--- NOTE | 2024-12-08 19:43 | DI.CT.S_ITS ---
PROCEDURE: CT ABDOMEN PELVIS W CON INDICATIONS: vomiting coffee grounds TECHNIQUE: After the administration of intravenous contrast, axial sections acquired from the lung bases to the pubic symphysis. Coronal and sagittal reformats were performed. For radiation dose reduction, the following was used: automated exposure control, adjustment of mA and/or kV according to patient size. COMPARISON: None. FINDINGS: Image quality: Diagnostic. Lower Chest: Trace left pleural effusion. Bilateral breast implants. Large hiatal hernia. Lower esophageal wall thickening. ABDOMEN: Liver: No solid mass. Gallbladder: No radiopaque gallstones or wall thickening. Biliary ducts: No biliary dilation. Pancreas: No ductal dilation. Spleen: Size is within normal limits. Adrenal Glands: No adrenal nodules. Kidneys and Ureters: No hydronephrosis. No solid mass. No complex renal cystic lesion which requires follow up. Stomach and Bowel: Marked distension of small bowel, with diffuse fecalized contents. There is a transition point in the right mid abdomen, with associated swirling of the mesentery (series 4, images 30 through 37). There is fecal debris within the ascending colon and transverse colon, with relative decompression of the distal large bowel. Normal bowel enhancement. Peritoneum: Small volume ascites. Ventral Wall: No significant ventral hernia. Abdominal Nodes: No retroperitoneal or mesenteric adenopathy by size criteria. Vessels: Aorta and inferior vena cava are normal in size. PELVIS: Pelvic Organs: Unremarkable. Bladder: No bladder wall thickening, accounting for underdistention. Pelvic Nodes: No enlarged lymph nodes. Miscellaneous: No inguinal hernias are seen. Bones: No aggressive osseous abnormality. Bilateral sacral insufficiency fractures. IMPRESSION: Small bowel obstruction with transition point in the right mid abdomen. There is associated swirling of the adjacent mesentery, which may indicate internal hernia. The bowel distal to the transition point does contains stool, favoring a low-grade, partial bowel obstruction. There is small volume ascites with normal enhancement of the bowel. Moderate hiatal hernia. Diffuse wall thickening of the lower esophagus, likely esophagitis related to vomiting. Bilateral sacral insufficiency fractures. Other ancillary findings as above. Dictated by: Alexsander Glez M.D. on 12/08/2024 at 20:27 Approved by: Alexsander Glez M.D. on 12/08/2024 at 20:31
[2024-12-08 19:57] LABS: Lipase 27 U/L (23-300)
--- NOTE | 2024-12-08 23:52 | P.HP_ITS ---
History of Present Illness History of Present Illness Chief complaint: Weakness x4 Days Narrative: 89-year-old female with past medical history of severe dementia currently living at a memory care facility presents with nausea and coffee emesis vomiting. Of note the patient has severe dementia and unable to give any clear history. Per the staff at the care facility, over the last 4 days the patient has been having nausea and vomiting. The patient does have ground coffee emesis. Otherwise history is very limited due to patient's severe dementia. Of note the patient was DNR/DNI and no aggressive measures with comfort measures only. In the emergency room, the patient was hemodynamically stable. CT scan of the abdomen shows signs of small bowel obstruction. Patient's son who is the POA was contacted and only wish for IV fluid and no other aggressive measures. If patient's condition does not improve with IV fluid the patient's son will want comfort measures only without any surgical intervention. [facility] Social History Smoking Status: Never smoker alcohol intake: never Meds Home Medications and Allergies Home Medications Medication Instructions Recorded Confirmed Type hydrocodone 5 mg-acetaminophen 325 1 tab PO Q6H PRN pain #7 tabs 10/23/24 12/08/24 Rx mg tablet albuterol sulfate 90 mcg/actuation 2 puff inhalation QID PRN SOB 12/08/24 12/08/24 History aerosol inhaler ascorbic acid (vitamin C) 500 mg 500 mg PO DAILY 12/08/24 12/08/24 History chewable tablet bisacodyl 10 mg rectal suppository 10 mg NH DAILY PRN Constipation 12/08/24 12/08/24 History bisacodyl 5 mg tablet 5 mg PO BEDTIME PRN Constipation 12/08/24 12/08/24 History calcium carbonate 600 mg PO BID 12/08/24 12/08/24 History cholecalciferol (vitamin D3) 50 50 mcg PO DAILY 12/08/24 12/08/24 History mcg (2,000 unit) tablet (Vitamin D3) ciclesonide 160 mcg/actuation 1 puff inhalation BID 12/08/24 12/08/24 History aerosol inhaler (Alvesco) donepezil 10 mg tablet 10 mg PO DAILY 12/08/24 12/08/24 History doxycycline hyclate 50 mg capsule 50 mg PO DAILY 12/08/24 12/08/24 History ipratropium 0.5 mg-albuterol 3 mg 1 ml inhalation Q6H 12/08/24 12/08/24 History (2.5 mg base)/3 mL nebulization soln loratadine 10 mg tablet 10 mg PO DAILY 12/08/24 12/08/24 History magnesium 250 mg tablet 250 mg PO DAILY 12/08/24 12/08/24 History magnesium hydroxide 400 mg/5 mL 400 mg PO DAILY 12/08/24 12/08/24 History oral suspension (Milk of Magnesia) meloxicam 15 mg tablet 15 mg PO DAILY 12/08/24 12/08/24 History Allergies Allergy/AdvReac Type Severity Reaction Status Date / Time milk Allergy Verified 10/23/24 12:20 shellfish derived Allergy Verified 10/23/24 12:20 wheat Allergy Verified 10/23/24 12:20 Review of Systems Review of Systems ROS: Yes unobtainable due to mental condition Exam Vital Signs (past 8 hours): - 12/08/24 18:27 12/08/24 18:30 12/08/24 18:30 Temperature Pulse Rate 71 72 Respiratory Rate 21 Blood Pressure 171/79 H Pulse Oximetry 94 99 Oxygen Delivery Method 12/08/24 18:39 12/08/24 19:00 12/08/24 19:00 Temperature 97.4 F L Pulse Rate 67 68 Respiratory Rate 22 19 Blood Pressure 179/84 H 161/74 H Pulse Oximetry 98 96 Oxygen Delivery Method Room Air 12/08/24 19:30 12/08/24 19:31 12/08/24 19:31 Temperature Pulse Rate 96 H 108 H Respiratory Rate 26 H 24 Blood Pressure 169/104 H Pulse Oximetry 96 97 Oxygen Delivery Method Room Air 12/08/24 20:00 12/08/24 20:30 12/08/24 21:00 Temperature Pulse Rate 82 81 76 Respiratory Rate 23 19 23 Blood Pressure Pulse Oximetry 96 96 96 Oxygen Delivery Method 12/08/24 21:30 12/08/24 22:57 Temperature Pulse Rate 71 78 Respiratory Rate 19 22 Blood Pressure 144/70 H Pulse Oximetry 97 95 Oxygen Delivery Method Room Air Oxygen Delivery Method Room Air Narrative Exam Narrative: Physical Exam: GENERAL: The patient is not in any acute distressed. Awake but confuse HEENT: Nonicteric sclerae, PERRLA, EOMI. Oropharynx clear. Moist mucous membranes. Conjunctivae appear well perfused. HEART: Regular rate and rhythm without murmurs. No lower extremities edema. LUNGS: Clear to auscultation bilaterally. No wheezing, crackles or rhonchi ABDOMEN: Soft, positive bowel sounds, nontender. SKIN: No rash, no excessive bruising, petechiae, or purpura. NEUROLOGIC:confuse. Cranial nerves II-XII intact without motor/sensory deficit. Objective Labs 12/08/24 18:30 12/08/24 18:30 Labs: Laboratory Results - last 24 hr 12/08/24 18:30 WBC 12.5 H RBC 4.06 Hgb 13.1 Hct 37.4 MCV 92.2 MCH 32.3 MCHC 35.0 RDW 13.2 Plt Count 314 Neut % (Auto) 86.0 H Lymph % (Auto) 4.2 L [place] % (Auto) 9.6 Eos % (Auto) 0.0 L Baso % (Auto) 0.2 Neut # (Auto) 18413 H Lymph # (Auto) 500 L [place] # (Auto) 1200 H Eos # (Auto) 0 Baso # (Auto) 0 PT 10.5 INR 0.9 APTT 28 Sodium 129 L Potassium 4.6 Chloride 90 L Carbon Dioxide 31 BUN 44 H Creatinine 0.74 Estimated GFR > 60 BUN/Creatinine Ratio 59.5 H Glucose 160 H Calcium 9.9 Total Bilirubin 0.7 AST 39 H ALT 24 Alkaline Phosphatase 141 H Total Protein 7.0 Albumin 4.2 Globulin 2.8 Albumin/Globulin Ratio 1.5 Lipase 27 Assessment & Plan Assessment & Plan narrative: Partial small bowel obstruction with possible GI bleed. Admit the patient to medical inpatient. Of note patient is DNR/DNI and comfort measures only. Patient's son is approved for IV fluid but no other aggressive measures including surgery or NG tube. Will continue conservative care with IV antiemetics and pain control. Continue IV PPI. If patient condition deteriorates patient send would only want comfort measures only. Severe dementia. Patient will need PT OT. Likely upper GI bleed. Continue IV PPI with limited intervention. Hemoglobin currently 13. Hyponatremia. Mild NS for now as sodium is 129. DVT prophylaxis SCDs due to GI bleed. CODE STATUS DNR/DNI with comfort measures. Disposition to be determined but if patient's condition improved consider discharging back to care facility in 2 days. - As the provider of this telehealth evaluation, requested by the patient's evaluating physician, I attest that I introduced myself to the patient, provided my credentials and determined that telemedicine via a real-time, 2 way interactive audio and video platform is an appropriate and effective means of providing this service. - I reviewed the patient's chart and had a discussion with the member of the patient's treatment team. - The patient and I mutually agreed with continuation of this evaluation via telemedicine. The patient consented for the telemedicine evaluation. - This virtual encounter was taken place from [place] by Dr. David Ornelas. The patient was evaluated at [facility]. The encounter was approximately 35 minutes. The nurse was present during the entire time of the encounter and was able to move the stethoscope in appropriate directions. Time-Based Coding :: [TOTAL MINUTES] spent with patient and on the chart (including review of chart, obtaining history, exam, reviewing outside data, placing orders, documenting exam and treatment plan, and counseling patient) on [DATE].
[2024-12-08] MEDS: SODIUM CHLORIDE 0.9% 1,000 ML 100 ML IV (23:55)
[2024-12-09] MEDS: HYDROCODONE/ACET 5/325 TABLET 1 TAB PO (00:43)
[2024-12-09] MEDS: MORPHINE 4 MG/ML INJ 3 MG IV ×2 (05:52→13:37)
[2024-12-09 05:58] LABS: Add Manual Diff / Slide Review NO; Basophils Absolute Auto 0 /uL (0-100); Basophils Percent Auto 0.2 % (0-2); Eosinophils Absolute Auto 0 /uL (0-450); Hematocrit 36.7 % (36-46); Hemoglobin 12.9 g/dL (12.0-16.0); Lymphocytes Absolute Auto 600 /uL (1100-4500); Mean Corpuscular Hemoglobin 32.3 PG (26-34); Mean Corpuscular Volume 92.3 fL (80-100); Monocytes Absolute Auto 1300 /uL (0-900); Monocytes Percent Auto 11.5 % (3-14); Neutrophils Absolute Auto 9000 /uL (1500-7000); Neutrophils Percent Auto 82.3 % (50-75); Platelet Count 318 X10^3/uL (150-400); Red Blood Cell Count 3.98 X10^6/uL (4.0-5.2); Red Cell Distribution Width 13.1 % (11.6-14.8); White Blood Cell Count 10.9 X10^3/uL (4.5-11.0)
[2024-12-09 06:16] LABS: Alanine Aminotransferase 22 IU/L (<35); Albumin 3.7 g/dL (3.5-5.0); Albumin Globulin Ratio 1.4 (1.0-2.8); Alkaline Phosphatase 124 U/L (38-126); Aspartate Aminotransferase 38 IU/L (14-36); BUN Creatinine Ratio 55.4 (6-22); Bilirubin Total 0.6 mg/dL (0.2-1.3); Blood Urea Nitrogen 41 mg/dL (7-17); Calcium 9.4 mg/dL (8.4-10.2); Carbon Dioxide 31 mmol/L (22-32); Chloride 93 mmol/L (98-107); Estimated Glomerular Filt Rate > 60 mL/min (>60); Globulin 2.6 g/dL (1.7-4.1); Glucose 135 mg/dL (70-99); HEMOLYSIS < 15 (0-50); Potassium 4.6 mmol/L (3.4-5.1); Sodium 130 mmol/L (137-145); Total Protein 6.3 g/dL (6.3-8.2)
[2024-12-09] MEDS: DONEPEZIL 5 MG TABLET 10 MG PO (08:23)
[2024-12-09] MEDS: PANTOPRAZOLE 40 MG VIAL IV (08:23)
[2024-12-09 09:00] VITALS: BP 136/63; PULSE 82; RESP 15; TEMP 36.2; O2SAT 92
[2024-12-09 09:13] VITALS: PULSE 83; RESP 14; O2SAT 93
--- NOTE | 2024-12-09 10:13 | PT-IP ANOTE ---
PT eval order received. EMR reviewed. pt on limited interventions comfort measure only. per hospitalist during rounds, d/c PT eval order.
--- NOTE | 2024-12-09 14:05 | CM.DANOTE ---
Patient is an 89 yo female who was admitted INPT Status on 12/08/24 for SBO. Pt has [facility] for insurance and her PCP is Jane Palacios. EMR was reviewed. Per MD, pt with dementia and poor historian and POLST shows comfort measures only and DNR/DNI and admitted for conservative tx of SBO with fluids and no surgical intervention or NGT at this time. Family had been bedside but currently not present and pt resides at [facility] and her son Dillan ([phone]) is her POA and lives in [place]. SW called Carmen at [facility] and she confirms that pt is their resident and is very independent at baseline and ambulates without DME typically and is continent of urine and stool and they mostly just provide assist with meals and laundry. Carmen states pt can get quite anxious with tremors at baseline when stressed but is usually fairly stubborn and independent. Carmen declines any need for clinicals to be faxed yet as its a weekend and she will not review until Wednesday when she is back but confirms they can accept pt back if SBO resolves or if she moves to formal Comfort Care with hospice at d/c. They cannot manage NGT in case family preference is placement of NGT during admission. Carmen states if pt can d/c by tomorrow Wed they do have their facility van available for transport Sundays. Plan: HARPREET to follow closely in the AM on pt's progress to determine if pt improving vs need for Hospice referral with plan of return to [facility] at discharge and to continue to coordinate with Carmen at [facility]. CORRINE Adame Discharge Planning/Care Management CM Discharge Assessment Start: 12/08/24 22:53 Freq: Status: Active Protocol: Document 12/09/24 14:02 BF (Rec: 12/09/24 14:05 [id number]) Discharge Planning Assessment Assigned Tree Driller CORRINE Craig DPOA/Assigned Designee Name son Dillan Guevara Contact Information [phone] Advance Directives? Yes: Yes/POLST Advance Directives on File Yes History Provided By Patient,Family Member,Medical Record Has Patient been admitted in last 30 No days? Prior Living Arrangements Assisted Living Comment [facility] Household Members none Type of transporation used prior to Relies on Others admit Facility Name Admitted From: [facility] Willing to Return to Facility? Yes Independent with ADL's No Is patient alert and oriented? No: severe dementia Needs Assistance With Bathing,Grooming,Meal Prep, Managing Medications,Home Chores / Shopping Caregiver for Another No Comment Return to Memory Care with or without Hospice pending progress Barriers to Discharge Yes Comment possible Hospice referral vs resolution of SBO Discharge Plan Assisted Living Facility Transportation Arrangement Facility van vs family Additional Comment Pending progress, possible Hospice referral needed Review Status In Process Please Provide Date Initial DC 12/09/24 Assessment Was Performed Next Review Type Continued Stay Review
--- NOTE | 2024-12-09 14:26 | PM.PN.1 ---
Subjective Subjective Interval history: 89 F with PMH of dementia admitted with a bowel obstruction. Discussed diagnosis and situation with patient's son Dillan this afternoon. He wishes us to stop IV fluids and purely focus on comfort. He does not wish for NG tube or surgery given her underlying cognitive status. Patient was denying pain this morning, but then intermittently would moan and appeared uncomfortable due to abdominal pain and she was confused about what was going on. Exam Vital Signs (past 8 hours): - 12/09/24 08:43 12/09/24 09:00 12/09/24 09:13 Temperature 97.2 F L Pulse Rate 82 83 Respiratory Rate 15 14 Blood Pressure 136/63 Pulse Oximetry 92 93 Oxygen Delivery Method Room Air Room Air Oxygen Flow Rate 0 Oxygen Delivery Method Room Air Oxygen Flow Rate 0 Narrative Exam Narrative: Physical Exam: GENERAL: The patient is not in any acute distressed. Awake but confuse HEENT: Nonicteric sclerae, PERRLA, EOMI. Oropharynx clear. Moist mucous membranes. Conjunctivae appear well perfused. HEART: Regular rate and rhythm without murmurs. No lower extremities edema. LUNGS: Clear to auscultation bilaterally. No wheezing, crackles or rhonchi ABDOMEN: Soft, positive bowel sounds, nontender. SKIN: No rash, no excessive bruising, petechiae, or purpura. NEUROLOGIC:confuse. Cranial nerves II-XII intact without motor/sensory deficit. Objective Labs 12/09/24 05:52 12/09/24 05:52 Labs: Laboratory Results - last 24 hr 12/08/24 12/09/24 18:30 05:52 WBC 12.5 H 10.9 RBC 4.06 3.98 L Hgb 13.1 12.9 Hct 37.4 36.7 MCV 92.2 92.3 MCH 32.3 32.3 MCHC 35.0 35.0 RDW 13.2 13.1 Plt Count 314 318 Neut % (Auto) 86.0 H 82.3 H Lymph % (Auto) 4.2 L 6.0 L [place] % (Auto) 9.6 11.5 Eos % (Auto) 0.0 L 0.0 L Baso % (Auto) 0.2 0.2 Neut # (Auto) 44690 H 9000 H Lymph # (Auto) 500 L 600 L [place] # (Auto) 1200 H 1300 H Eos # (Auto) 0 0 Baso # (Auto) 0 0 PT 10.5 INR 0.9 APTT 28 Sodium 129 L 130 L Potassium 4.6 4.6 Chloride 90 L 93 L Carbon Dioxide 31 31 BUN 44 H 41 H Creatinine 0.74 0.74 Estimated GFR > 60 > 60 BUN/Creatinine Ratio 59.5 H 55.4 H Glucose 160 H 135 H Calcium 9.9 9.4 Total Bilirubin 0.7 0.6 AST 39 H 38 H ALT 24 22 Alkaline Phosphatase 141 H 124 Total Protein 7.0 6.3 Albumin 4.2 3.7 Globulin 2.8 2.6 Albumin/Globulin Ratio 1.5 1.4 Lipase 27 PFSH Social History household members: none Smoking Status: Never smoker alcohol intake: never Assessment & Plan Assessment & Plan narrative: Partial small bowel obstruction - no IV fluids per son. Discussed NG tube placement and the risks and benefits with patient's son whom stated no NG tube or surgery. - morphine SL PRN - patient can have diet if she would like, though risk of aspiration. - discussed this could resolve on it's own, but impossible to tell. Severe dementia Hyponatremia. Mild NS for now as sodium is 129 likely due to dehydration. Will not do any additional lab work. DVT prophylaxis SCDs due to GI bleed. Can stop if uncomfortable for patient CODE STATUS DNR/DNI with comfort measures only, surrogate decision maker is patient's son Dillan. Disposition to be determined, may in the hosptial or return to memory care facility with hospice if bowel obstruction doesn't resolve itself. Additional history obtained via discussions with the overnight admitting provider and son. These discussions contributed to the creation of the above assessment and plan. I have reviewed patient's presenting documentation, labs, and imaging personally. Time-Based Coding :: [TOTAL MINUTES] spent with patient and on the chart (including review of chart, obtaining history, exam, reviewing outside data, placing orders, documenting exam and treatment plan, and counseling patient) on [DATE].
[2024-12-09 15:37] VITALS: PULSE 87; RESP 20; O2SAT 94
[2024-12-09] MEDS: MORPHINE 10 MG/0.5 ML ORAL SYRINGE SL (16:18)
[2024-12-10 06:49] VITALS: BP 133/66; PULSE 85; RESP 26; TEMP 36.6; O2SAT 94
[2024-12-10 08:00] VITALS: BP 143/59; PULSE 94; RESP 19; TEMP 36.6; O2SAT 93
[2024-12-10] MEDS: PANTOPRAZOLE 40 MG VIAL IV (08:18)
[2024-12-10] MEDS: MORPHINE 10 MG/0.5 ML ORAL SYRINGE SL ×4 (08:33→21:15)
[2024-12-10] MEDS: diazePAM 10 MG/2 ML SYRINGE 5 MG IV ×3 (09:59→17:27)
--- NOTE | 2024-12-10 13:23 | PM.PN.1 ---
Subjective Subjective Interval history: 89 F with PMH of dementia admitted with a bowel obstruction. Discussed diagnosis and situation with patient's son Dillan. He wishes us to stop IV fluids and purely focus on comfort. He does not wish for NG tube or surgery given her underlying cognitive status. Still occasionally moaning in discomfort. Trying to set up for hospice at [facility] but probably not for a couple of days. Exam Vital Signs (past 8 hours): - 12/10/24 06:49 12/10/24 08:00 12/10/24 08:26 Temperature 97.9 F 98 F Pulse Rate 85 94 H Respiratory Rate 26 H 19 Blood Pressure 133/66 143/59 H Pulse Oximetry 94 93 Oxygen Delivery Method Room Air Oxygen Flow Rate 0 Oxygen Delivery Method Room Air Oxygen Flow Rate 0 Narrative Exam Narrative: Physical Exam: GENERAL: The patient is not in any acute distressed. Awake but confused HEENT: Nonicteric sclerae, PERRLA, EOMI. Oropharynx clear. Moist mucous membranes. Conjunctivae appear well perfused. HEART: Regular rate and rhythm without murmurs. No lower extremities edema. LUNGS: Clear to auscultation bilaterally. No wheezing, crackles or rhonchi ABDOMEN: Soft,tender with minimal palpiation, mild distension Objective Labs 12/09/24 05:52 12/09/24 05:52 [facility] Social History household members: none Smoking Status: Never smoker alcohol intake: never Assessment & Plan Assessment & Plan narrative: Partial small bowel obstruction - no IV fluids per son. Discussed NG tube placement and the risks and benefits with patient's son whom stated no NG tube or surgery. - morphine SL PRN - patient can have diet if she would like, though risk of aspiration. - discussed this could resolve on it's own, but impossible to tell. Severe dementia Hyponatremia. No more additional lab work. DVT prophylaxis SCDs due to GI bleed. Can stop if uncomfortable for patient CODE STATUS DNR/DNI with comfort measures only, surrogate decision maker is patient's son Dillan. Disposition to be determined, may in the hospital or return to [facility] care facility with hospice if bowel obstruction doesn't resolve itself. Additional history obtained via discussions with the overnight admitting provider and son. These discussions contributed to the creation of the above assessment and plan. I have reviewed patient's presenting documentation, labs, and imaging personally. Time-Based Coding :: [TOTAL MINUTES] spent with patient and on the chart (including review of chart, obtaining history, exam, reviewing outside data, placing orders, documenting exam and treatment plan, and counseling patient) on [DATE].
--- NOTE | 2024-12-11 07:52 | CM.DPC ---
Late Entry for 12/10/24: Per MD, discussion with son and decision to still not do NGT for SBO and also to withdraw IV fluids and switch pt to Comfort Care. SW made [facility] referral and faxed clinicals to review. SW faxed clinicals to Carmen at [facility] to review for likely return with Hospice. Plan: SW to follow with [facility] and Carmen at [facility] on Wednesday to coordinate plan of discharge back to [facility] with Hospice if pt remains stable. CORRINE Adame
[2024-12-11 08:00] VITALS: BP 135/65; PULSE 95; RESP 20; TEMP 36.3; O2SAT 95
[2024-12-11] MEDS: MORPHINE 10 MG/0.5 ML ORAL SYRINGE SL ×2 (09:41→16:32)
[2024-12-11] MEDS: PANTOPRAZOLE 40 MG VIAL IV (09:42)
--- NOTE | 2024-12-11 13:33 | CM.DPNOTE ---
DCP Note TISSUE TECHNICIAN reviewed EMR per malinda at [facility], soonest SOC is Wed between 2-3. will work on DME delivery. Per Carmen at [facility], due to concerns about PCP no longer taking pt's insurance, would need [facility] to open same day as dc to [facility] due to not having a provider following her meds. will coordinate with [facility]/Family today. TISSUE TECHNICIAN met with son meg in room. confirmed preference to dc to [facility] with [facility] Wednesday. pt reported verbal understanding that pt insurance may not cover non emergency ambulance but agrees preference for transport. TISSUE TECHNICIAN answered questions to best of ability. son declined andi services but would love the therapy dogs to stop by. provided info for service that has all the arrangements set up already (Viky Pantoja [place] [phone]). TISSUE TECHNICIAN spoke with Angeles at [facility], transport arranged for 1300 Wed 12/13. TISSUE TECHNICIAN completed BLS form. CC POLST previously completed. TISSUE TECHNICIAN placed BLS form and POLST in chart. P: anticipate dc Wed 12/13 at 1300 via [facility] for [facility] SOC at 1400. CM team will continue to follow as needed CORRINE Stone
--- NOTE | 2024-12-11 15:02 | OT.IPNOTE ---
OT eval order received. EMR reviewed. Pt is on limited interventions comfort measure only and will be transferred to hospice. D/C OT eval order.
[2024-12-11] MEDS: SCOPOLAMINE 1 PATCH TOP (16:32)
--- NOTE | 2024-12-11 17:50 | PM.PN.1 ---
Subjective Subjective Date Patient Seen: 12/11/24 Interval history: Chief complaint: Bowel obstruction with advanced dementia patient admitted for comfort measures only set up for hospice very soon Physical exam: Premorbid Assessment and plan: Partial small bowel obstruction - no IV fluids per son. Discussed NG tube placement and the risks and benefits with patient's son whom stated no NG tube or surgery. - morphine SL PRN - patient can have diet if she would like, though risk of aspiration. - discussed this could resolve on it's own, but impossible to tell. Severe dementia Hyponatremia. No more additional lab work. DVT prophylaxis SCDs due to GI bleed. Can stop if uncomfortable for patient CODE STATUS DNR/DNI with comfort measures only, surrogate decision maker is patient's son Dillan. Disposition to be determined, may in the hospital or return to memory care facility with hospice if bowel obstruction doesn't resolve itself. Additional history obtained via discussions with the overnight admitting provider and son. These discussions contributed to the creation of the above assessment and plan. I have reviewed patient's presenting documentation, labs, and imaging personally. Time-Based Coding :: Fifteen minutes spent with patient and on the chart (including review of chart, obtaining history, exam, reviewing outside data, placing orders, documenting exam and treatment plan, and counseling patient). Exam Vital Signs (past 8 hours): Oxygen Delivery Method Room Air Oxygen Flow Rate 0 Objective Labs 12/09/24 05:52 12/09/24 05:52 [facility] Social History household members: none Smoking Status: Never smoker alcohol intake: never Assessment & Plan Time-Based Coding :: [TOTAL MINUTES] spent with patient and on the chart (including review of chart, obtaining history, exam, reviewing outside data, placing orders, documenting exam and treatment plan, and counseling patient) on [DATE].
--- NOTE | 2024-12-11 18:27 | PC.NURSE ---
Comfort care measures continued today. Patient's son and grand daughter visited and sat at bedside today, they have no questions or concerns for this RN today. Patient minimally responsive, medicated with morphine SL for pain as documented. Repositioning for comfort every 2 hours, with heel protectors and pillow in use. Mepilex protective foam dressing applied to sacrum. Brief in place for incontinence.
[2024-12-12] MEDS: MORPHINE 10 MG/0.5 ML ORAL SYRINGE SL ×3 (06:33→16:43)
[2024-12-12 08:00] VITALS: BP 116/57; PULSE 75; RESP 27; TEMP 36.8; O2SAT 90
--- NOTE | 2024-12-12 14:17 | CM.DPNOTE ---
Addendum entered by CORRINE Stone 12/12/24 14:23: Add to previous note: [facility] fax [phone]. Original Note: DCP note ADMISSIONS DEAN reviewed EMR per provider, pt may or may not be stable for dc tomorrow, may be more appropriate to be imminent. ADMISSIONS DEAN confirmed with Lilliana from [facility] that DME is being delivered today. confirmed set to SOC 12/13 at 1400. ADMISSIONS DEAN spoke with Carmen at [facility] ([phone]). updated on plan. carmen confirms ready to take pt back tomorrow. ADMISSIONS DEAN (with the wonderful assistance of pharmacist Alina) faxed recent meds and RN note. Carmen asked for scripts tomorrow for pain meds in order to make sure they have appropriate meds. will send tomorrow. ADMISSIONS DEAN met with granddaughter treva in room. confirmed family/POA Dillan is aware and agreeable to plan. deny other questions or needs at this time. pt laying in bed unresponsive during interaction, chest rising and falling. FS/BLS form/POLST in chart. P: anticipate dc tomorrow at 1300 [facility] to [facility], [facility] SOC at 1400. will send dc summary and scripts to [facility] tomorrow. CORRINE Stone
--- NOTE | 2024-12-12 16:49 | PM.PN.1 ---
Subjective Subjective Date Patient Seen: 12/12/24 Interval history: Chief complaint: Bowel obstruction with advanced dementia patient admitted for comfort measures only set up for hospice very soon Physical exam: Premorbid Assessment and plan: Partial small bowel obstruction - no IV fluids per son. Discussed NG tube placement and the risks and benefits with patient's son whom stated no NG tube or surgery. - morphine SL PRN - patient can have diet if she would like, though risk of aspiration. - discussed this could resolve on it's own, but impossible to tell. Severe dementia Hyponatremia. No more additional lab work. DVT prophylaxis SCDs due to GI bleed. Can stop if uncomfortable for patient CODE STATUS DNR/DNI with comfort measures only, surrogate decision maker is patient's son Dillan. Disposition to be determined, may in the hospital or return to memory care facility with hospice if bowel obstruction doesn't resolve itself. Additional history obtained via discussions with the overnight admitting provider and son. These discussions contributed to the creation of the above assessment and plan. I have reviewed patient's presenting documentation, labs, and imaging personally. Time-Based Coding :: Fifteen minutes spent with patient and on the chart Exam Vital Signs (past 8 hours): - 12/12/24 09:00 Oxygen Delivery Method Room Air Oxygen Delivery Method Room Air Oxygen Flow Rate 0 Objective Labs 12/09/24 05:52 12/09/24 05:52 [facility] Social History household members: none Smoking Status: Never smoker alcohol intake: never Assessment & Plan Time-Based Coding :: [TOTAL MINUTES] spent with patient and on the chart (including review of chart, obtaining history, exam, reviewing outside data, placing orders, documenting exam and treatment plan, and counseling patient) on [DATE].
--- NOTE | 2024-12-13 00:12 | PC.NURSE ---
Chart accessed 12/13/24 to late entry admin of SL morphine 10 mg prn pain 12/19 [facility] at 06:33 AM, due to [employer] downtime and paper charting.
[2024-12-13 08:00] VITALS: BP 138/63; PULSE 84; RESP 14; TEMP 35.9; O2SAT 96
--- NOTE | 2024-12-13 09:31 | PM.DS.1 ---
History of Present Illness History of Present Illness Date Patient Seen: 12/13/24 Chief complaint: Weakness x4 Days Narrative: Chief complaint: Bowel obstruction with advanced dementia patient admitted for comfort measures only set up for hospice very soon Physical exam: Premorbid Assessment and plan: Partial small bowel obstruction - no IV fluids per son. Discussed NG tube placement and the risks and benefits with patient's son whom stated no NG tube or surgery. - morphine SL PRN - patient can have diet if she would like, though risk of aspiration. - discussed this could resolve on it's own, but impossible to tell. Severe dementia Hyponatremia. No more additional lab work. DVT prophylaxis SCDs due to GI bleed. Can stop if uncomfortable for patient CODE STATUS DNR/DNI with comfort measures only, surrogate decision maker is patient's son Dillan. Disposition to be determined, may in the hospital or return to [facility] with hospice if bowel obstruction doesn't resolve itself. Additional history obtained via discussions with the overnight admitting provider and son. These discussions contributed to the creation of the above assessment and plan. I have reviewed patient's presenting documentation, labs, and imaging personally. Time-Based Coding :: Fifteen minutes spent with patient and on the chart Discharge Providers Provider Date of admission: 12/08/24 21:59 Discharge Date: 12/13/24 Primary care physician: RENÉE Cheema Consults: 12/08/24 21:58 Consult to Occupational Therapy Evaluate & Treat Comment: Physician Instructions: Evaluate and treat Consult to Physical Therapy Evaluate & Treat Comment: Physician Instructions: Evaluate and Treat 12/09/24 14:31 Consult to Discharge Planning Routine Comment: Discharge provider: Roberto Layne MD Exam Vital Signs (past 8 hours): - 12/13/24 08:00 Temperature 96.6 F L Pulse Rate 84 Respiratory Rate 14 Blood Pressure 138/63 Pulse Oximetry 96 Oxygen Flow Rate 0 Oxygen Delivery Method Room Air Oxygen Flow Rate 0 Objective Labs 12/09/24 05:52 12/09/24 05:52 [facility] Social History household members: none Smoking Status: Never smoker alcohol intake: never Discharge Plan Discharge Plan Patient Disposition: Hospice - Home Transfer to: [facility] Discharge orders & Medications Prescriptions: New scopolamine base [Transderm-Scop] 1 mg over 3 days Patch 3 Day 1 patch topical Q72H PRN (Reason: Secretions) Qty: 10 0RF morphine concentrate 10 mg/0.5 mL Syringe 10 mg sublingual Q1H PRN (Reason: Pain, Mild (1-3)) Qty: 6 0RF Discontinued hydrocodone-acetaminophen 5-325 mg tablet 1 tab PO Q6H PRN (Reason: pain) Qty: 7 0RF ipratropium-albuterol 0.5 mg-3 mg(2.5 mg base)/3 mL solution for nebulization 1 ml inhalation Q6H Patient Comments: [NO ORIGINAL SIG] donepezil 10 mg tablet 10 mg PO DAILY meloxicam 15 mg tablet 15 mg PO DAILY Rx Instructions: AT 1500 doxycycline hyclate 50 mg Capsule 50 mg PO DAILY Rx Instructions: AT 1500 calcium carbonate 600 mg calcium (1,500 mg) Tablet 600 mg PO BID Patient Comments: AT 0900, 1600 magnesium hydroxide [Milk of Magnesia] 400 mg/5 mL Suspension 400 mg PO DAILY bisacodyl 10 mg Suppository 10 mg NC DAILY PRN (Reason: Constipation) ascorbic acid (vitamin C) [Chewable Vitamin C] 500 mg Tablet,Chewable 500 mg PO DAILY Patient Comments: AT 1830 magnesium 250 mg Tablet 250 mg PO DAILY Patient Comments: at 1800 albuterol sulfate 90 mcg/actuation Hfa Aerosol Inhaler 2 puff INHALATION QID PRN (Reason: SOB) loratadine 10 mg Tablet 10 mg PO DAILY bisacodyl 5 mg Tablet 5 mg PO BEDTIME PRN (Reason: Constipation) cholecalciferol (vitamin D3) [Vitamin D3] 50 mcg (2,000 unit) Tablet 50 mcg PO DAILY Alvesco 160 mcg/actuation HFA aerosol inhaler 1 puff inhalation BID Rx Instructions: AT 0900, 1600 Follow up/Referrals: Jane Palacios ARNP [Primary Care Provider, Medical] Visit Report/Discharge Packet Stand Alone Forms: Patient Portal/API, Stroke Signs & Symptoms Discharge Data Primary Care Provider: Jane Palacios
[2024-12-13] MEDS: MORPHINE 10 MG/0.5 ML ORAL SYRINGE SL (10:54)
--- NOTE | 2024-12-13 11:27 | CM.DPNOTE ---
Addendum entered by CORRINE Stone 12/13/24 12:23: Carmen from [facility] requested signed med list. [employer]IST faxed signed med list. Asked that son bring meds. FI[employer]IST gave scripts to son, son kindly agreed to bring them to [facility] so no delay in pain med care. CM team will continue to follow as needed CORRINE Stone Original Note: DCP note [employer]IST reviewed EMR per provider, [facility] hosp[facility]. BLS form/POLST in chart. FI[employer] SPECIALIST gave RN copies of scripts from provider. FI[employer]IST met with son and granddaughter in room. confirm agreement with plan. expressed verbal understanding that their may be a bill associated with S transport and wish to proceed. deny other questions or concerns at this time. [employer]IST spoke with Carmen ([phone]) at [facility], agreeable to take her back. FI[employer]IST faxed dc sum draft and script copies. [employer]IST spoke with malinda at [facility]. DME was delivered, all set for SOC at 1400. FI[employer]IST spoke with Nicolas from [facility], attempting to advocate on pt's behalf, explained that pt was not able to return to [facility] due to pt's PCP suddenly no longer being contracted with [facility] and [facility] could not accept pt back without a provider to manage her pain meds until Hosice could start. Nicolas suggested our team file peer to peer review. will continue to deny INPT stay,. P: dc today at 1300 to [facility] with [facility] to open at 1400. CM team will continue to follow as needed CORRINE Stone
[2024-12-13] MEDS: diazePAM 5 MG TABLET PO (11:57)
--- NOTE | 2024-12-13 13:23 | PC.NURSE ---
Discharge summary and BLS packet given to BLS personnel. Gave report to BLS personnel. IV already removed. Pt exited via stretcher.
== END 2024-12-13 13:24 | disposition hospice, home (50) ==
LOC: ED 21:59 → AC 12-09 10:19
PROVIDERS: Admitting Provider Internal Medicine; Emergency Provider Emergency Medicine; PCP Nurse Practitioner Family; Referring Provider Emergency Medicine; Visit Provider Internal Medicine
DX: K56.609 Unspecified intestinal obstruction, unspecified as to partial versus complete obstruction (principal); R53.1 Weakness; R11.10 Vomiting, unspecified; E87.1 Hypo-osmolality and hyponatremia; F03.C0 Unspecified dementia, severe, without behavioral disturbance, psychotic disturbance, mood disturbance, and anxiety; Z66 Do not resuscitate
CPT/HCPCS: 74177; 80053; 83690; 85025; 85610; 85730; 94668; 94799; 96361; 96374; 96375; 96376; 99284; G0378; J2270; J2470; J3360; Q9967